=== PATIENT | male | born 1990 | race Caucasian/White ===

== ENCOUNTER 2017-12-10 22:53 | Emergency (ER) | payer OTHER ==
[2017-12-10 23:04] VITALS: BP 123/86; PULSE 82; RESP 20; TEMP 99.2; O2SAT 99
[2017-12-10] MEDS ORDERED: Bacitracin 500 Units/gm Oint Foilpak UD ONE (23:30)
[2017-12-10] MEDS ORDERED: Bacitracin Ointment 30 GM TUBE TOP STA (23:31)
--- NOTE | 2017-12-10 23:39 | C.PDOC ---
History Of Present Illness 27 y/o male presents for evaluation of a laceration to the right hand, sustained this evening. Patient states he accidentally cut his right palm on the sharp edge of a mop. Denies any numbness or weakness. Tetanus is up to date. Time Seen by Provider: 12/10/17 23:04 Chief Complaint (Nursing): Abnormal Skin Integrity History Per: Patient History/Exam Limitations: no limitations Onset/Duration Of Symptoms: Hrs Current Symptoms Are (Timing): Still Present Past Medical History Reviewed: Historical Data, Nursing Documentation, Vital Signs Vital Signs: Last Vital Signs Temp 99.2 F 12/10/17 23:01 Pulse 82 12/10/17 23:01 Resp 20 12/10/17 23:01 BP 123/86 12/10/17 23:01 Pulse Ox 99 12/11/17 02:51 - Medical History PMH: No Chronic Diseases Surgical History: No Surg Hx Family History: States: No Known Family Hx - Social History Hx Tobacco Use: No Hx Alcohol Use: No Hx Substance Use: No - Immunization History Hx Tetanus Toxoid Vaccination: Yes (2015) Hx Influenza Vaccination: No Hx Pneumococcal Vaccination: No Review Of Systems Skin: Positive for: Lesions (to right palm) Neurological: Negative for: Weakness, Numbness Physical Exam - Physical Exam Appears: Non-toxic, No Acute Distress Skin: Warm, Dry Head: Atraumatic, Normacephalic Eye(s): bilateral: Normal Inspection, PERRL, EOMI Chest: Symmetrical Extremity: Normal ROM, No Tenderness, Capillary Refill (less than 2 sec), No Swelling, Other (Partial skin avulsion to palmar aspect of right hand, no foreign body or tendon visualized) Pulses: Left Radial: Normal, Right Radial: Normal Neurological/Psych: Oriented x3, Normal Speech, Normal Motor, Normal Sensation, Other (No focal deficits) ED Course And Treatment O2 Sat by Pulse Oximetry: 99 (RA) Pulse Ox Interpretation: Normal Progress Note: Wound was irrigated with normal saline and skin flap debrided. Bacitracin and sterile dressing applied. Counseled patient regarding wound care and advised to follow up with PMD. 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 - Scribe Statement The provider has reviewed the documentation as recorded by the Scribe (Milagros Wilkinson) All medical record entries made by the Scribe were at my direction and personally dictated by me. I have reviewed the chart and agree that the record accurately reflects my personal performance of the history, physical exam, medical decision making, and the department course for this patient. I have also personally directed, reviewed, and agree with the discharge instructions and disposition.
== END 2017-12-10 23:45 | disposition home or self-care (01) ==
LOC: C.ER 22:53
DX: S61.411A Laceration without foreign body of right hand, initial encounter (principal); W45.8XXA Other foreign body or object entering through skin, initial encounter